=== PATIENT | female | born 1980 | race Caucasian/White ===

== ENCOUNTER 2018-10-12 15:57 | Emergency (ER) | payer BC ==
[2018-10-12 17:19] VITALS: BP 107/69
[2018-10-12] MEDS ORDERED: Sulfamethox/Trimethoprim DS 800/160* TAB PO ONE (17:51)
--- NOTE | 2018-10-12 17:53 | UC ---
Skin Complaint HPI - HPI Summary HPI Summary: patient c/o what she believes to be an abscess on her right buttock--has been there for 2 days and hurts to sit -- - History of Current Complaint Chief Complaint: UCSkin Time Seen by Provider: 10/12/18 17:44 Stated Complaint: PERSONAL Hx Obtained From: Patient Hx Last Menstrual Period: 2 wks ago ?: No Onset/Duration: Sudden Onset, Lasting Days - 2 Timing: Constant Pain Intensity: 5 Pain Scale Used: 0-10 Numeric Location: Discrete Character: Pain, Redness, Raised Aggravating Factor(s): Touch Alleviating Factor(s): Nothing Associated Signs & Symptoms: Positive: Negative - Allergy/Home Medications Allergies/Adverse Reactions: Allergies Allergy/AdvReac Type Severity Reaction Status Date / Time No Known Allergies Allergy Verified 10/18/18 01:02 PMH/Surg Hx/FS Hx/Imm Hx Previously Healthy: Yes - Surgical History Surgical History: None - Family History Known Family History: Positive: Non-Contributory - Social History Occupation: Employed Full-time Lives: With Family Alcohol Use: Rare Substance Use Type: None Smoking Status (MU): Never Smoked Tobacco Review of Systems All Other Systems Reviewed And Are Negative: Yes Constitutional: Positive: Negative Skin: Positive: Other - sore red warm raised area on buttock (r) Eyes: Positive: Negative ENT: Positive: Negative Respiratory: Positive: Negative Cardiovascular: Positive: Negative Gastrointestinal: Positive: Negative Genitourinary: Positive: Negative Motor: Positive: Negative Neurovascular: Positive: Negative Musculoskeletal: Positive: Negative Neurological: Positive: Negative Psychological: Positive: Negative Is Patient Immunocompromised?: No Physical Exam Triage Information Reviewed: Yes Appearance: Well-Appearing, No Pain Distress, Well-Nourished Vital Signs: Initial Vital Signs Temp 98.4 F 10/12/18 17:14 Pulse 74 10/12/18 17:14 Resp 12 10/12/18 17:14 BP 107/69 10/12/18 17:14 Pulse Ox 100 10/12/18 17:14 Vital Signs Reviewed: Yes Eye Exam: Normal Eyes: Positive: Conjunctiva Clear ENT Exam: Normal ENT: Positive: Normal ENT inspection, Hearing grossly normal. Negative: Nasal congestion, Trismus, Muffled voice, Hoarse voice Dental Exam: Normal Neck exam: Normal Neck: Positive: Supple, Nontender Respiratory Exam: Normal Respiratory: Positive: Chest non-tender, No respiratory distress, No accessory muscle use Cardiovascular Exam: Normal Cardiovascular: Positive: RRR, Pulses Normal, Brisk Capillary Refill Musculoskeletal Exam: Normal Musculoskeletal: Positive: Strength Intact, ROM Intact, No Edema Neurological Exam: Normal Neurological: Positive: Alert, Muscle Tone Normal Psychological Exam: Normal Skin Exam: Other Skin: Positive: Other - raised red warm tender 3 cm diameter with out fluctulance or tenting Course/Dx - Course Course Of Treatment: warm compress, tylenol/ibuprofen Bactrim follow with pcp prn - Diagnoses Provider Diagnosis: Abscess of right buttock Discharge - Sign-Out/Discharge Documenting (check all that apply): Patient Departure All imaging exams completed and their final reports reviewed: No Studies - Discharge Plan Condition: Stable Disposition: HOME Prescriptions: Sulfamethox/Trimethoprim DS* [Bactrim DS 800/160 TAB*] 1 tab PO BID #19 tab Patient Education Materials: Ibuprofen (By mouth), Abscess (ED), Warm Compress or Soak (ED) Referrals: Brandon De La O MD [Primary Care Provider] - If Needed - Billing Disposition and Condition Condition: STABLE Disposition: Home
== END 2018-10-12 18:06 | disposition home or self-care (01) ==
LOC: UCEAST 15:57
DX: L02.31 Cutaneous abscess of buttock (principal)
CPT/HCPCS: 99212; A9270-GY; G0463

== ENCOUNTER 2018-10-18 00:57 | Emergency (ER) | payer BC ==
--- OUTSIDE RECORDS SUMMARY | 2018-10-18 01:40 | XMS REPORT | Continuity of Care Document ---
:1980 External Reference #:[id number] Author Name Irena Lopez, SECURITIES AND REAL ESTATE DIRECTOR Address [address] [facility] [place] [address] Care Team Providers Name Role Phone Eugenio De La O MD Care Team Information Slagger Unavailable Eugenio De La O MD Primary Care Physician Unavailable Payers Date Identification Numbers Payment Provider Subscriber Policy Number: [id number] Essential Plan [employer] Jakub Quinonez PayID: [id number] [address] [address] [place] [address] Advance Directives Description No Information Available Problems Date Description Provider Status Onset: 11/30/2014 Bipolar disorder Raimundo Willard M.D. Active Onset: 08/14/2012 Allergic rhinitis Ariel Griffin M.D. Active Onset: 08/14/2012 Acute upper respiratory infection Ariel Griffin M.D. Active Family History Date Family Member(s) Observation Comments General No early myocardial infarction or cerebrovascular accident, no colon or breast cancer Social History Type Date Description Comments Sex Unknown General Teacher Tobacco Use Start: Unknown Never Smoked Cigarettes ETOH Use Occasional Tobacco Use Start: Unknown Patient has never smoked Exercise Type/Frequency Current Exercises regularly Sexual Hx Women Only Allergies, Adverse Reactions, Alerts Date Description Reaction Status Severity Comments 12/09/2013 Amoxicillin Active 07/06/2010 NKDA Inactive Medications Medication Date Status Form Strength Qnty SIG Indications Ordering Provider Cephalexin Active Tablets 500mg 20tabs take one L03.317 Irena Patle 019 by mouth John four SECURITIES AND REAL ESTATE DIRECTOR times per day Bactrim DS Active Tablets 800-160mg 1 by Unknown 000 mouth twice a day No Active Hx Unknown Medications 019 - 019 Famotidine Hx Tablets 40mg 60tabs 1 tab by K21.9 Eugenio Wharton 018 - mouth Jairon, bid 019 No Active Hx Unknown Medications 015 - 018 Lamotrigine Hx Tablets 100mg 90tabs 1 by 296.99 Raimundo Willard, 014 - mouth M.D. every 015 day 296.80 Bactrim DS 12/11/2013 - Hx Tablets 800-160mg 14tabs 1 by mouth Raimundo Willard, 01/14/2014 twice a M.D. day for 7 days Fluticasone 12/09/2013 - Hx Suspension 50mcg/Act 1bottle 2 sprays 477 Raimundo Willard, Propionate 03/17/2014 each .9 M.DJohn nostril daily Lamotrigine 08/14/2012 - Hx Tablets 150mg 30tabs 1 po qd 296 Raimundo Willard, 03/17/2014 .99 M.D. Fexofenadine HCL 08/14/2012 - Hx Tablets 180mg 30tabs 1 po qd 477 George AJohn 12/09/2013 .9 Daljit Griffin Metronidazole 08/01/2010 - Hx Tablets 500mg 21tabs one tab po 623 George A. 11/30/2010 tid for .8 Elias seven days Tate.DJohn Lamictal - Hx Tablets 150mg 180tabs take one George A. 08/14/2012 tablet by sunday Griffin M.DJohn twice a day Pepcid ac - Hx Tablets 10mg qd Unknown 08/08/2018 Medications Administered in Office Medication Date Status Form Strength Qnty SIG Indications Ordering Provider TB Intradermal Administered Injection Ariel Celis Test 011 Daljit Griffin Immunizations Description No Information Available Vital Signs Date Vital Result Comment 10/16/2018 5:35pm BP Systolic 112 mmHg BP Diastolic 62 mmHg Heart Rate 88 /min Body Temperature 101.2 F Height 66.5 inches 5'6.50" measured 04/02/18 Weight 132.00 lb BMI (Body Mass Index) 21.0 kg/m2 08/08/2018 5:00pm BP Systolic 98 mmHg BP Diastolic 70 mmHg Heart Rate 64 /min Body Temperature 97.8 F Respiratory Rate 17 /min O2 % BldC Oximetry 99 % Ra Height 66.5 inches 5'6.50" measured 04/02/18 04/23/2018 3:20pm BP Systolic 100 mmHg BP Diastolic 68 mmHg Heart Rate 66 /min Body Temperature 97.9 F Height 66.5 inches 5'6.50" measured 04/02/18 04/02/2018 8:24pm BP Systolic 118 mmHg BP Diastolic 60 mmHg Heart Rate 64 /min Body Temperature 97.9 F Respiratory Rate 16 /min O2 % BldC Oximetry 99 % Height 66.5 inches 5'6.50" measured 04/02/18 Weight 125.38 lb BMI (Body Mass Index) 19.9 kg/m2 05/25/2015 5:28pm BP Systolic 112 mmHg BP Diastolic 60 mmHg Heart Rate 66 /min Body Temperature 97.6 F Respiratory Rate 16 /min Height 66.5 inches 5'6.50" Weight 128.00 lb BMI (Body Mass Index) 20.3 kg/m2 11/30/2014 8:13am BP Systolic 100 mmHg BP Diastolic 68 mmHg Heart Rate 56 /min Body Temperature 97.5 F Respiratory Rate 16 /min Height 66.25 inches 5'6.25" Weight 132.00 lb BMI (Body Mass Index) 21.1 kg/m2 10/20/2014 2:46pm BP Systolic 114 mmHg BP Diastolic 86 mmHg Heart Rate 66 /min Body Temperature 98.5 F Height 66.25 inches 5'6.25" Weight 136.00 lb BMI (Body Mass Index) 21.8 kg/m2 10/06/2014 8:21am BP Systolic 98 mmHg BP Diastolic 60 mmHg Heart Rate 60 /min Body Temperature 97.6 F Respiratory Rate 16 /min Height 66.25 inches 5'6.25" Weight 133.00 lb BMI (Body Mass Index) 21.3 kg/m2 06/01/2014 10:03am BP Systolic 92 mmHg BP Diastolic 60 mmHg Heart Rate 56 /min Body Temperature 97.7 F Respiratory Rate 14 /min Height 66.25 inches 5'6.25" Weight 129.00 lb BMI (Body Mass Index) 20.7 kg/m2 03/17/2014 5:21pm BP Systolic 112 mmHg BP Diastolic 70 mmHg Heart Rate 58 /min Body Temperature 97.8 F Respiratory Rate 16 /min Height 66.25 inches 5'6.25" Weight 133.00 lb BMI (Body Mass Index) 21.3 kg/m2 01/14/2014 9:27am BP Systolic 100 mmHg BP Diastolic 60 mmHg Heart Rate 64 /min Body Temperature 97.7 F Respiratory Rate 16 /min Height 66.25 inches 5'6.25" Weight 132.12 lb BMI (Body Mass Index) 21.2 kg/m2 12/09/2013 6:53pm BP Systolic 118 mmHg BP Diastolic 70 mmHg Heart Rate 70 /min Body Temperature 99.2 F Respiratory Rate 18 /min Height 66.25 inches 5'6.25" Weight 129.00 lb BMI (Body Mass Index) 20.7 kg/m2 08/14/2012 4:48pm BP Systolic 100 mmHg BP Diastolic 60 mmHg Heart Rate 60 /min Body Temperature 95.9 F Respiratory Rate 16 /min O2 % BldC Oximetry 98 % Height 67 inches 5'7" Weight 132.50 lb BMI (Body Mass Index) 20.8 kg/m2 11/30/2010 5:00pm BP Systolic 84 mmHg BP Diastolic 64 mmHg Heart Rate 66 /min Body Temperature 98.5 F Height 67 inches 5'7" Weight 139.00 lb BMI (Body Mass Index) 21.8 kg/m2 08/01/2010 9:02am BP Systolic 106 mmHg BP Diastolic 72 mmHg Heart Rate 78 /min Body Temperature 98.5 F Height 67 inches 5'7" Weight 133.00 lb BMI (Body Mass Index) 20.8 kg/m2 07/06/2010 6:24pm BP Systolic 100 mmHg BP Diastolic 62 mmHg Heart Rate 72 /min Body Temperature 98.0 F Height 67 inches 5'7" Weight 133.00 lb BMI (Body Mass Index) 20.8 kg/m2 Results Test Date Facility Test Result H/L Range Note Flu A&B (Fma) 10/16/2018 [facility] Influenza A negative (607)- - Influenza B negative Laboratory test 10/06/2014 [facility] Urine Culture No growth. finding [address] [place] [address] [phone] Ua - Micro (Fma) 10/06/2014 [facility] Appearance SLT CLOUDY (607)- - Color YELLOW Glucose, Urine (Fma/CMC/CTX) NEG Bilirubin NEG Ketones NEG SP Grav >=1.030 Blood SMALL # PH 6.0 Protein NEG Urobil 0.2 Nitrite NEG Leukocytes (Fma/CMC/[facility]) NEG Hyaline - /Lpf Granular - /Lpf WBC (Fma,[facility]) 0-2 # RBC 3-5 # Mucus (Fma/CBC/[facility]) SM AMT /Lpf # Epith RARE /Lpf # Bacteria 1+ /Hpf # Amorphous (Fma/CMC/[facility]) - /Lpf Crystals, Fluid (Fma/CMC/CTX) - Z#Comments - Ua - Micro (a) 06/01/2014 [facility] Appearance CLEAR (607)- - Color YELLOW Glucose, Urine (Fma/CMC/CTX) NEG Bilirubin NEG Ketones NEG SP Grav 1.015 Blood MODERATE # PH 7.0 Protein NEG Urobil 0.2 Nitrite NEG Leukocytes (Fma/CMC/[facility]) NEG Hyaline - /Lpf Granular - /Lpf WBC (Fma,[facility]) 0-2 # RBC 3-5 # Mucus - /Lpf Epith RARE /Lpf # Bacteria RARE /Hpf # Amorphous - /Lpf Crystals, Fluid (Fma/CMC/CTX) - Z#Comments - CBC Electronic (a) 12/12/2013 [facility] WBC 6.9 3.6-9.6 (607)- - RBC 4.22 3.90-5.70 Hemoglobin (Fma/CMC/CTX) 12.6 g/dL 12.1 - 17.2 Hematocrit (Fma/CMC/CTX) 37.6 % 36.1 - 50.3 Platelets 202 10^3/ul 150-400 Lymph% 34.1 % 17.0-48.0 Mixed% 5.2 Neutrophils % 60.7 Mean Corpuscular Vol 89 82.2-97.4 Mean Corpuscular Hemoglobin 29.9 27.6-33.3 Mean Corpuscular Hemo Concen 33.6 32.0-36.0 RDW 13.6 11.6-13.7 Mean Platelet Volume 8.0 5.5-11.0 Lamotrigine 12/12/2013 [facility] Lamotrigine, 4.1 ug/mL 2.0-20.0 1 (Lamictal) [address] [place] [id number] [phone] Laboratory test 12/12/2013 [facility] (Fma) TSH 4.17 0.50-6.00 finding mIU/L Lipid Profile 12/12/2013 [facility] (a) Cholesterol 154 mg/dL 120- 200 Triglycerides 72 mg/dL 30-200 HDL Cholesterol 63 mg/dL 30-85 LDL (Calculated) 77 CALC 0-129 VLDL Cholesterol 14 mg/dL 0-50 HDL Risk Factor 2.4 CALC 0.0-4.4 Comprehensive Metabolic 12/12/2013 [facility] (a) Sodium 138 mEq/L 134-149 Prof Potassium 4.3 mEq/L 3.6-5.5 Chloride 105 mEq/L 94-112 Carbon Dioxide 22 mEq/L 21-32 Glucose 98 mg/dL 70-105 BUN 8 mg/dL 6-26 Creatinine 0.8 mg/dL 0.6-1.4 BUN/Creat Ratio 10.0 CALC 8.0-36.0 Calcium 8.7 mg/dL 8.6-10.2 Total Protein 7.0 g/dL 6.3-8.1 Albumin 4.3 g/dL 3.8-5.5 Globulin 2.7 g/dL 2.0-4.8 A/G Ratio 1.6 CALC 0.6-2.3 Alk. Phosphatase 42 U/L 30-110 Alt (SGPT) 19 U/L 7-35 Ast (Sgot) 13 U/L 5-34 Total Bilirubin 0.6 mg/dL 0.2-1.3 Laboratory test 12/09/2013 [facility] Thin Prep SEE NOTE 2 finding [address] [facility] [address] W/HPV(Lsil/HEBER/Asc) [place] [id number] [phone] Ua - Micro 12/09/2013 [facility] Appearance clear (a) (607)- - Color yellow Glucose, Urine (Fma/CMC/CTX) neg Bilirubin neg Ketones neg SP Grav 1.020 Blood trace-intact # PH 7.0 Protein neg Urobil 0.2 Nitrite neg Leukocytes (Fma/CMC/[facility]) trace # Hyaline - /Lpf Granular - /Lpf WBC (Fma,[facility]) 2-4 # RBC 0-1 # Mucus (Fma/CBC/[facility]) - /Lpf Epith few /Lpf # Bacteria 1+ /Hpf # Amorphous (Fma/CMC/[facility]) - /Lpf Crystals, Fluid (Fma/CMC/CTX) - Z#Comments read @24hrs # CBC Manual Diff-a 08/15/2012 [facility] WBC 6.2 3.6-9.6 (607)- - RBC 4.07 3.90-5.70 Hemoglobin (Fma/CMC/CTX) 12.2 g/dL 12.1 - 17.2 Hematocrit (Fma/CMC/CTX) 36.4 % 36.1 - 50.3 Mean Corpuscular Vol 89 82.2-97.4 Mean Corpuscular Hemoglobin 30.0 27.6-33.3 Mean Corpuscular Hemo Concen 33.5 32.0-36.0 Platelets 241 10^3/ul 150-400 RDW 13.5 11.6-13.7 Mean Platelet Volume 7.5 6.5-11.0 Neutrophil 55 Band 2 Lymphocytes 35 Monocyte 2 Eosinophils 2 Basophils 1 Atypical Lymph 3 # Z#Comment rbc/plts normal Ebv Acute Infection 08/15/2012 [facility] Ebv Ab Vca, 0.3 AI 0.0-0.8 3 Abs [address] [facility] IgM [place], [place] [id number] [phone] Ebv Early Antigen Ab, IgG <0.2 AI 0.0-0.8 4 Ebv Ab Vca, IgG 5.8 AI High 0.0-0.8 5 Ebv Nuclear Antigen Ab, IgG >8.0 AI High 0.0-0.8 6 Interpretation: SEE NOTE 7 Laboratory test 08/14/2012 [facility] Throat - Beta NEG @ 48 HRS finding (607)- - Strep Fma Quickstrep NEG Negative Influenza A&B 08/14/2012 [facility] Influenza A NEG (607)- - Influenza B NEG Hepatitis 08/01/2010 [facility] Hep B NON-REACTIVE Non-Reactive 8 Acute Panel [address] [place] [place] [address] Antigen [phone] Hep C Antibody NON-REACTIVE Non-Reactive Hep C S/Co Ratio 0.2 0.0-0.9 Hep B Core Antibody Igm NON-REACTIVE Non-Reactive Hep A Antibody Igm NON-REACTIVE Non-Reactive GC/Chlamydia Probe 08/01/2010 [facility] Chlamydia NEGATIVE Or Urine(Ce [address] [facility] [address] Amplified Probe [place], [place] [id number] [phone] GC Amplified Probe NEGATIVE Laboratory test 08/01/2010 [facility] RPR NON-REACTIVE Non-Reactive finding [address] [place] [address] [phone] Anti Viral AB 08/01/2010 [facility] HIV 1/O/2 <1.00 <1.00 9 Screen [address] [facility] [place] [address] Value [phone] HIV 1/O/2 Abs, Qual Non Reactive 10 Lipid Profile 08/01/2010 [facility] (Fma) Cholesterol 198 mg/dL 120- 200 HDL 82 mg/dL 30-85 Triglycerides 66 mg/dL 30-200 HDL Risk Factor 2.4 CALC Low 4.2-7.0 LDL (Calculated) 103 CALC 0-129 VLDL (Calculated) 13 mg/dL 0-50 Basic Metabolic Profile 08/01/2010 [facility] (Fma) BUN 12 mg/dL 6- 26 Calcium 9.4 mg/dL 8.6-10.2 Chloride 103 mEq/L 94-112 Creatinine 0.8 mg/dL 0.6-1.4 Carbon Dioxide 22 mEq/L 21-32 Glucose 93 mg/dL 70-105 Sodium 135 mEq/L 134-149 Potassium 4.3 mEq/L 3.6-5.5 BUN/Creat Ratio 14.8 Calc 8.0-36.0 Ua - Micro (Fma) 08/01/2010 [facility] Appearance CLOUDY # (607)- - Color YELLOW Glucose, Urine (Fma/CMC/CTX) NEG Bilirubin NEG Ketones 15 # SP Grav 1.030 Blood SMALL # PH 5.0 Protein NEG Urobil 0.2 Nitrite NEG Leukocytes (Fma/[facility]) SMALL # Hyaline - /Lpf Granular - /Lpf WBC ([facility]) 10-14 # RBC 5-7 # Mucus (Fma/CBC/[facility]) - /Lpf Epith MOD AMT /Lpf # Bacteria 2+ /Hpf Amorphous (Fma/CMC/[facility]) MOD AMT /Lpf # Z#Comments NOT A CC Laboratory test 08/01/2010 [facility] Thin Prep SEE NOTE 11 finding [address] [facility] W/HPV(Lsil/HEBER/Asc) [place], [place] [id number] [phone] CBCM-Fma 07/06/2010 [facility] WBC 8.6 3.6- (607)- - 9.6 RBC 4.25 3.90-5.70 Hemoglobin (Fma/CMC/CTX) 12.3 g/dL 12.1 - 17.2 Hematocrit (Fma/CMC/CTX) 37.5 % 36.1 - 50.3 Mean Corpuscular Vol 88 82.2-97.4 Mean Corpuscular Hemoglobin 28.9 27.6-33.3 Mean Corpuscular Hemo Concen 32.7 32.0-36.0 Platelets 185 10^3/ul 150-400 RDW 11.4 Low 11.6-13.7 Mean Platelet Volume 9.5 6.5-11.0 Neutrophil 54 Band 11 Lymphocytes 30 Monocyte 3 Atypical Lymph 2 Comment RBC/PLTS NORMAL Laboratory test 07/06/2010 [facility] Monospot ([facility]) NEGATIVE finding (607)- - 1 Detection Limit=1.0 2 [facility] [employer] DEPARTMENT OF PATHOLOGY or Extension [phone] ACADEMIC SERVICES COORDINATOR CYTOLOGY REPORT Patient: JAKUB QUINONEZ : 1980 AGE: 33 Y SEX: F Acct: [id number] Procedure Date: 12/09/2013 Date Received: 12/11/2013 Requesting Provider: RAIMUNDO WILLARD MD Location: [facility] Case No. [id number] Requisition #: [id number] CYTOLOGIC INTERPRETATION: SPECIMEN ADEQUACY SATISFACTORY FOR EVALUATION, ENDOCERVICAL TRANSFORMATION ZONE COMPONENT PRESENT GENERAL CATEGORIZATION NEGATIVE FOR INTRAEPITHELIAL LESIONS OR MALIGNANCY RECOMMENDATIONS Refer to the corresponding web sites for 2012 updated general recommendation guidelines of [place]. preventive service task force for cervical cancer screening, and www.asccp.org//nupetffcv1795. COMMENTS Thin Prep Pap tests are examined with an FDA approved location-guidance system. PATIENT DATA: SPECIMEN SUBMITTED: * * (HPVII) THIN PREP W/HPV (LSIL/ASC/HEBER) * * ENDOCERVICAL RELEVANT HISTORY: LMP: 11/25/2013 Contraceptive: NONE Previous smear date: Prev.normal: 10/08 ADDITIONAL COPIES SENT TO: Screened/Rescreened Electronically Signed Sign Out Date/Time: by: by: MAMI AVILASIMSHERINE STEVENSON, 12/14/2013 14:03 CT(ASCP) Note: The Pap smear is a screening test designed to aid in the detection of premalignant and malignant conditions of the uterine cervix. It is not a diagnostic procedure and should not be used as the sole means of detecting cervical cancer. Both false-positive and false-negative reports do occur. 00 UA Pap Smear performed at [facility] Dir: Augustin Lopez MD, [address] [facility] [address] 01 property field adjuster [facility] Dir: Genoveva Chavira MD, [address] [facility] [address] 02 [facility] [place] Dir: Bj Hopkins MD, [address] [facility] [address] For inquiries regarding HPV test results, the physician may contact [facility]: [phone] . 3 Negative <0.9 Equivocal 0.9 - 1.0 Positive >1.0 4 Negative <0.9 Equivocal 0.9 - 1.0 Positive >1.0 5 Negative <0.9 Equivocal 0.9 - 1.0 Positive >1.0 6 Negative <0.9 Equivocal 0.9 - 1.0 Positive >1.0 7 EBV Interpretation Chart . Interpretation VCA-IgM EA-IgG VCA-IgG NA-ABS . Susceptible - - - - Acute Infection + +or- +or- - Convalescent Phase +or- +or- + + Chronic or Reactivated - + + +or- Old Infection - - +or- + + Antibody Present - Antibody Absent 8 3 SST; 1 GEN PROBE 9 Index Value: Specimen reactivity relative to the negative cutoff. 10 Negative: Non-reactive by ICMA Positive: Repeatedly reactive by ICMA. Refer to Western Blot confirmatory test for final interpretation. . Physician should psychosocial rehabilitation counselor the patient about result significance. Patient information should be kept strictly confidential. 11 [employer] DEPARTMENT OF PATHOLOGY or Extension 8264 ACADEMIC SERVICES COORDINATOR CYTOLOGY REPORT PATIENT: JAKUB QUINONEZ : 1980 AGE: 29 Y SEX: F ACCT: [id number] PROCEDURE DATE: 08/01/2010 DATE RECEIVED: 08/02/2010 REQUESTING PHYSICIAN: EUGENIO BASS MD LOCATION: [facility] Case No. [id number] PATIENT DATA: [id number] SPECIMEN SUBMITTED: * * (HPVII) THIN PREP W/HPV (LSIL/ASC/HEBER) * * ENDOCERVICAL RELEVANT HISTORY: LMP: 07/14/2010 Prev.normal: LONG TIME AGO SPECIMEN ADEQUACY SATISFACTORY FOR EVALUATION, ENDOCERVICAL TRANSFORMATION ZONE COMPONENT PRESENT GENERAL CATEGORIZATION NEGATIVE FOR INTRAEPITHELIAL LESIONS OR MALIGNANCY ADDITIONAL COPIES SENT TO: Screened/Rescreened Electronically Signed Sign Out Date/Time: by: by: DARIEL OVALLE, 08/02/2010 12:40 CT(ASCP) Thin Prep Pap tests are examined with an FDA-approved location-guidance system (05129). Performed @ [facility] [address] [place] [address] Procedures Date Code Description Status 10/16/2018 50151 Remove Impact Cerumen Irrigati Completed 08/08/2018 82682 Pulse Oximetry Completed 04/02/2018 44129 Pulse Oximetry Completed 11/30/2010 29664 Destruction Of Flat Warts Or Molluscum Contagiosum, Milia Completed To 15 Encounters Type Date Location Provider Dx Diagnosis Office Visit 08/08/2018 Main Office Eugenio Wharton R55 Syncope and 4:30p MD Jairon collapse Office Visit 04/23/2018 Main Office Eugenio Wharton K21.9 Gastro-esophageal 3:10p MD Jairon reflux disease without esophagitis Office Visit 04/02/2018 Main Office Eugenio Wharton R06.00 Dyspnea, 8:30p MD Jairon unspecified Office Visit 05/25/2015 Main Office Raimundo Willard M.D. Z00.00 Encntr for general 5:20p adult medical exam w/o abnormal findings Office Visit 11/30/2014 [facility] Office Raimundo Willard M.D. 296.80 Bipolar Disorder 8:10a NOS Office Visit 10/20/2014 Main Office Cathy 788.1 Dysuria 3:00p Adeline NETWORK SECURITY OFFICER 789.09 Pain Abdominal Other Spec Site Office Visit 10/06/2014 8:00a Main Office DHRUV Barnes 788.1 Dysuria 789.09 Pain Abdominal Other Spec Site Office Visit 06/01/2014 9:50a [facility] Raimundo Willard 296.80 Bipolar Disorder M.DJohn NOS 788.1 Dysuria Office Visit 03/17/2014 5:20p Main Office Raimundo Willard 296.80 Bipolar Disorder M.D. NOS Office Visit 01/14/2014 9:15a [facility] Ericka Denton, 719.46 Pain Joint Lower SECURITIES AND REAL ESTATE DIRECTOR Leg Office Visit 12/09/2013 6:50p Main Office Raimundo Willard V70.0 Examination Daljit General Medical Routine AT Health Care Facility 296.99 Episodic Mood Disorder NEC 477.9 Rhinitis Allergic Cause Unspec V01.6 Venereal Diseases Contact W/ Exposure To 791.7 Cells & Casts In Urine Other Office Visit 08/14/2012 4:30p [facility] Ariel Celis 465.9 URI Upper Daljit Griffin Respiratory Infections Acute Unspec Sites 477.9 Rhinitis Allergic Cause Unspec Office Visit 11/30/2010 5:00p Main Office Ariel Griffin 296.99 Episodic Mood M.D. Disorder NEC 611.9 Breast Disorders Unspec 078.10 Viral Warts Unspec Office Visit 08/01/2010 9:00a [facility] Ariel Celis V70.0 Examination Daljit Griffin General Medical Routine AT Health Care Facility V77.91 Screening For Lipoid Disorders V76.10 Screening For Malignant Neoplasm Breast V76.2 Screening Malignant Neoplasm Cervix V69.2 Sexual Behavior High Risk 623.8 Vaginal Disorder Noninflammatory Spec Other v74.1 Screening Examination Pulmonary Tuberculosis Office Visit 07/06/2010 6:30p Main Office Ariel Griffin, 296.99 Episodic Mood M.D. Disorder NEC 462 Pharyngitis Acute Plan of Treatment 10/16/2018 - Irena Lopez, NPL03.317 Cellulitis of buttockNew Medication: Cephalexin 500 mg - take one by mouth four times per dayComments:If you are not improving and fever-free within 36 hours, please come back or go to the emergency department for further care.R50.9 Fever, fyekothnsonU75.21 Impacted cerumen, right earAllComments:1. Patient has been queried about patient's goals /preferences and functional/lifestyle goals at relevant visits. If relevant, describe: Has been discussed, noted above2. Treatment goals as explainedto the patient: see above3. Are there barriers to meeting treatment goals? Yes If Yes, please describe: Barriers include possible insurance limits, disease process, and difficulty with lifestyle changes4. Self-Management goals as described to the patient: Yes, see above As always, we strongly encourage a healthy diet and making physical activity a part of your every day life. If you have questions about how or where to start, please contact the office.
[2018-10-18] MEDS ORDERED: Acetaminophen TAB* 325 MG PO ONE (01:56)
[2018-10-18 02:02] VITALS: BP 103/50
--- NOTE | 2018-10-18 02:04 | ED ---
Skin Complaint - HPI Summary HPI Summary: 37-year-old female presents with concerns of a persistent fever. States she was seen in the [facility] urgent [facility] on 10/12/2018 for an abscess of her right buttock. An I&D was performed and patient was placed on Bactrim DS 1 tablet twice a day 10 days and encouraged to do hot packing of the abscess. States on 10/15/2018 she started with some general malaise and a cough. The following day she started running a temperature of 102 F with mild nasal congestion, occasionally productive cough for green sputum, and was seen by her primary care provider. Patient reports that at that time the abscess had improved but continued to be red and painful. She was swabbed for the flu while at her primary care provider's office and states the test was negative. Her primary care provider placed her on cephalexin 500 mg 4 times a day in addition to the Bactrim. Patient states that since that time she has continued to run an intermittent fever as high as 101 F however the abscess has continued to improve. She does report nausea since adding the cephalexin to her regimen. - History of Current Complaint Chief Complaint: EDRashSkinAbscess Time Seen by Provider: 10/18/18 01:31 Stated Complaint: "I'M ON ANTIBIOTICS FOR AN ABCESS, I HAVE A FEVER" Hx Obtained From: Patient Hx Last Menstrual Period: 2 wks ago Pain Intensity: 0 - Allergy/Home Medications Allergies/Adverse Reactions: Allergies Allergy/AdvReac Type Severity Reaction Status Date / Time No Known Allergies Allergy Verified 10/18/18 01:02 Home Medications: Home Medications Cephalexin CAP* [Keflex 500 CAP*] 500 mg PO QID 10/18/18 [History Confirmed ] PMH/Surg Hx/FS Hx/Imm Hx Previously Healthy: Yes - Denies significant PMH Infectious Disease History: No Infectious Disease History: Denies: Traveled Outside the [place] in Last 30 Days - Family History Known Family History: Positive: Non-Contributory - Social History Occupation: Employed Full-time Lives: Alone Alcohol Use: Rare Substance Use Type: Reports: None Smoking Status (MU): Never Smoked Tobacco Review of Systems Positive: Fever, Chills, Fatigue Negative: Sore Throat, Ear Ache, Nasal Discharge Negative: Palpitations, Chest Pain Positive: Cough. Negative: Shortness Of Breath Positive: Nausea. Negative: Abdominal Pain, Vomiting, Diarrhea Positive: no symptoms reported Musculoskeletal: Negative Positive: Other - See HPI Neurological: Negative All Other Systems Reviewed And Are Negative: Yes Physical Exam - Summary Physical Exam Summary: GENERAL APPEARANCE: Well developed, well nourished, alert and cooperative, non- toxic appearing female who appears to be in no acute distress. EYES: Conjunctiva clear. No drainage. Vision is grossly intact. EARS: External auditory canals and tympanic membranes clear, hearing grossly intact. NOSE: No nasal discharge. THROAT: Mild pharyngeal erythema. No tonsilar inflammation, swelling, exudate, or lesions. Uvula midline. Oral cavity normal. Teeth and gingiva in good general condition. NECK: Neck supple, non-tender without lymphadenopathy. CARDIAC: Normal S1 and S2. No S3, S4 or murmurs. Rhythm is regular. There is no peripheral edema, cyanosis or pallor. Extremities are warm and well perfused. Capillary refill is less than 2 seconds. Peripheral pulses intact. LUNGS: Clear to auscultation without rales, rhonchi, wheezing or diminished breath sounds. Occasional non-productive cough. ABDOMEN: Positive bowel sounds. Soft, nondistended, nontender. No guarding or rebound. No masses or hepatosplenomegally. MUSKULOSKELETAL: ROM intact to all extremities. No joint erythema or tenderness. Normal muscular development. Normal gait. SKIN: 3 cm circular area of mild erythema and induration without fluctuance or drainage to her right buttocks. Triage Information Reviewed: Yes Vital Signs On Initial Exam: Initial Vitals Temp Pulse Resp BP Pulse Ox 100.6 F 95 16 101/64 95 10/18/18 00:58 10/18/18 00:58 10/18/18 00:58 10/18/18 00:58 10/18/18 00:58 Vital Signs Reviewed: Yes Diagnostics - Vital Signs Vital Signs Temp Pulse Resp BP Pulse Ox 10/18/18 00:58 100.6 F 95 16 101/64 95 - Laboratory Lab Statement: Any lab studies that have been ordered have been reviewed, and results considered in the medical decision making process. Course/Dx - Course Course Of Treatment: 37-year-old female presents with concerns of a persistent fever. States she was seen in the [facility] urgent [facility] on 10/12/2018 for an abscess of her right buttock. An I&D was performed and patient was placed on Bactrim DS 1 tablet twice a day 10 days and encouraged to do hot packing of the abscess. States on 10/15/2018 she started with some general malaise and a cough. The following day she started running a temperature of 102 F with mild nasal congestion, occasionally productive cough for green sputum, and was seen by her primary care provider. Patient reports that at that time the abscess had improved but continued to be red and painful. She was swabbed for the flu while at her primary care provider's office and states the test was negative. Her primary care provider placed her on cephalexin 500 mg 4 times a day in addition to the Bactrim. Patient states that since that time she has continued to run an intermittent fever as high as 101 F however the abscess has continued to improve. She does report nausea since adding the cephalexin to her regimen. Patient had a low-grade fever of 100.1 F at triage. Vital signs were stable. Exam revealed a young adult female in no acute distress, she was nontoxic appearing, had some mild nasal congestion, mild pharyngeal erythema without tonsillar swelling or exudate, no cervical lymphadenopathy, clear bilateral breath sounds, and nonproductive cough. She had a 3 cm circular area of mild erythema and induration without fluctuance or drainage to her right buttocks. I suspect with the improving of her abscess that her fever is much more likely from a viral illness. I have recommended that she continue with the Bactrim DS for the full 10 days and have given her the option of stopping the cephalexin since it is causing nausea and unlikely providing any additional coverage for likely pathogens. I have recommended that she alternate Tylenol and ibuprofen to help better manage her fever. She should continue hot packing the abscess as previously discussed. She is to return here or follow up with her primary care provider in 3 days if the fevers persist or sooner if she has any worsening of symptoms. Anticipatory guidance and warning symptoms were reviewed with the patient. Verbalizes understanding and agrees with plan of care. - Differential Diagnoses - Skin Complaint Differential Diagnoses: Abscess, Cellulitis, MRSA, Other - viral syndrome, bronchitis - Diagnoses Provider Diagnoses: Abscess of right buttock, Viral syndrome Discharge - Sign-Out/Discharge Documenting (check all that apply): Patient Departure Patient Received Moderate/Deep Sedation with Procedure: No - Discharge Plan Condition: Stable Disposition: HOME Patient Education Materials: Abscess (ED), Viral Syndrome (ED) Referrals: Brandon De La O MD [Primary Care Provider] - Additional Instructions: Your abscess appears to be improving. I suspect that your fever is more likely coming from a viral infection. Continue taking the Bactrim DS as directed for the full 10 days. You can stop the cephalexin if you would like especially since it is causing upset stomach. Continue doing the hot packs of the abscess. You can try alternating ibuprofen with Tylenol every 3 hours to help manage her fever. Get plenty of rest. Drink plenty of fluids to avoid dehydration especially if you are running any fever. Return here or with your primary care provider in 3 days if symptoms are not improving, sooner if her symptoms continue to worsen. - Billing Disposition and Condition Condition: STABLE Disposition: Home
== END 2018-10-18 02:14 | disposition home or self-care (01) ==
LOC: ED 00:57
DX: L02.31 Cutaneous abscess of buttock (principal); B34.9 Viral infection, unspecified
CPT/HCPCS: 99282; A9270-GY